=== PATIENT | female | born 1970 | race Caucasian/White ===

== ENCOUNTER → 2020-02-26 | Outpatient (REF) | payer OTHER, MEDICAID ==
[~2020-02-26] MED LIST: ANOR1AER PO; FURO20TA2 PO; PROAAER10 INH; SPIR-10 PO
[2020-02-26 13:35] LABS: BLOOD UREA NITROGEN 1 MG/DL (7-18); CALCIUM LEVEL 9.1 MG/DL (8.5-10.1); CARBON DIOXIDE LEVEL 29 MEQ/L (21-32); CHLORIDE LEVEL 97 MEQ/L (98-107); CREATININE FOR GFR 0.32 MG/DL (0.55-1.30); GLOMERULAR FILTRATION RATE > 60.0 (>51); GLUCOSE, FASTING 91 MG/DL (70-100); SODIUM LEVEL 132 MEQ/L (136-145)
== END ==
LOC: M PLALAB 11:25
PROVIDERS: ATTEND Surgery
DX: C50.911 Malignant neoplasm of unspecified site of right female breast (principal)

== ENCOUNTER → 2020-03-22 | Outpatient (CLI) | payer OTHER, MEDICAID ==
[~2020-03-22] MED LIST changes: +KP BTAB PO; +LISI-542 PO; +MULTCAP PO; +ONDA8TAB10 PO; +POTA1TAB14 PO; +PROC10TA4 PO; +PROHANCE 279.3MG/ML 5ML VIAL As Ordered ONE; +TREL1AER PO; +VITA50005 PO
--- NOTE | 2020-05-17 08:06 | REP ---
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 COMPARISON: Mammography and sonography 01/27/2020. Comparison sonography 03/30/2020. This report was delayed due to a malware attack on this facility. TECHNIQUE: High resolution pre- and postcontrast T1 and T2-weighted axial and coronal images and sagittal images are acquired. Dynamically acquired postcontrast images are acquired. Computer-aided detection device was used ([employer] system). Gadolinium enhancement dose is 8.6 mL of intravenous ProHance. MRI FINDINGS: The biopsy-proven malignancy is a large heterogeneously enhancing mass along the superior aspect of the right breast adjacent to the chest wall. This is apparently not projectable on mammography. The lesion measures 4.2 cm in greatest diameter x 3.0 cm x 4.1 cm. There is a convexity in the overlying skin and the lesion is not separable from the underlying pectoralis muscle. The pectoralis muscle appears intact. There is no definite pectoralis muscle invasion. There is no evidence of axillary lymphadenopathy. The lesion shows heterogeneous T2 hyperintensity, T1 hypointensity, and heterogeneously predominantly plateau and washout kinetic enhancements on dynamically acquired postcontrast images. There are large draining veins in the right breast. The right breast parenchymal shows extensive fibroglandular tissue bilaterally. There is a mild pattern of background parenchymal enhancement. No other suspicious focus of enhancement and washout is seen in either breast on dynamically acquired postcontrast images. There is a small nodule consistent with an intramammary lymph node in the 12 o'clock position of the posterior third of the right breast. This measures 7 mm in diameter and does not have suspicious features. No other suspicious morphologic abnormality is seen in either breast. IMPRESSION: BI-RADS category 6 known breast malignancy, large mass in the right superior breast, consistent with the biopsied lesion. No other suspicious abnormality is seen in either breast. [facility]
== END ==
LOC: M RAD 16:02
PROVIDERS: ATTEND Surgery
DX: C50.911 Malignant neoplasm of unspecified site of right female breast (principal)
CPT/HCPCS: A9576; C8908

== ENCOUNTER → 2020-03-30 | Outpatient (CLI) | payer OTHER ==
[~2020-03-30] MED LIST changes: -PROHANCE 279.3MG/ML 5ML VIAL As Ordered ONE
--- NOTE | 2020-05-20 19:28 | ROOPDOC ---
[facility] Report Of Operation Report of Operation This is a late entry note for the encounter from the date 03/30/20. Delay is due to major systemwide [facility] computer outage. Procedure Date 03/30/20 Dx: right breast cancer Procedure: Hydromark clip placement into right breast mass and punch biopsy of the right breast mass skin changes Findings: Hydromark clip seen in the mass on the sono examination, muscle seems to move independently from the mass, skin punch biopsy is taken at the area of nodularity over the mass Surgeon: Francois Narayan Lidocaine 1% LOT [id number] Expiration 01/2023 Sodium Bicarbonate 8.4% LOT [id number] Expiration 01/2021 Hydromark clip LOT [id number] Expiration 09/2022 SHAPE 4 4 mm punch biopsy device Informed consent was obtained. The most common risk and possible complications including bleeding, hematoma, bruising, infection, injury to surrounding structures were explained to the patient and she expressed understanding. Patient was placed on the bed in the supine position. Appropriate time out was done stating patients name, date of , and the procedure to be performed. The right breast was prepped and draped in the usual fashion. The ultrasound was used to document the size of the lesion in the lesion in the right breast at 1:00. Procedure was started with Hyrdomark placement into the mass as patient will be undergoing chemotherapy soon and the mass may be no longer palpable post chemotherapy. Plain Lidocaine 1% and 8.4% sodium bicarbonate 10:1 mix was used to anesthetize the skin at the side where the Hydromark will be placed and underlying tissues. Next the SHAPE 4 Hydromark clip introducer was placed into the middle of the mass and the clip deployed under sonographic guidance. Post-clip placement image was captured. Manual pressure over the biopsy cavity and tract was held after the clip intr oducer was withdrawn. No bleeding was noted upon removal of the pressure. Next, we proceeded with the second part of procedure which involved right breast mass skin punch biopsy. A skin area with nodularity at the medial and inferior aspect of the mass was chosen for the site of biopsy. Plain Lidocaine 1% and 8.4% sodium bicarbonate 10:1 mix was used to anesthetize the skin at the biopsy site. 4 mm punch biopsy device was used to collect the sample. Specimen was placed in formaldehyde, labeled with appropriate biopsy site and patients name, and sent to pathology for evaluation. The skin defect was closed with 4-0 chromic suture. Postprocedural dressing was placed. Patient tolerated procedure well. Discharge instructions were discussed with the patient and she expressed understanding. FRANCOIS NARAYAN DO May 20, 2020 19:27
== END ==
LOC: M IRPRO 11:35
PROVIDERS: ATTEND Surgery
DX: C50.911 Malignant neoplasm of unspecified site of right female breast (principal)

== ENCOUNTER → 2020-04-14 | Outpatient (CLI) | payer OTHER ==
[~2020-04-14] MED LIST changes: +LIDOCAINE 1% MDV 20ML VIAL As Ordered ONE; +MIDAZOLAM INJ 2MG/2ML VIAL (J2250 PER 1MG) As Ordered ONE; +ceFAZolin 2 GM/D5W 50 ML IV BAG (J0690 PER 500MG) As Ordered ONE; +diphenhydrAMINE 50MG/ML VIAL (J1200) As Ordered ONE; +fentaNYL 100 MCG/2 ML INJECTION (J3010) As Ordered ONE
[2020-04-14 14:15] LABS: INR 0.98; PROTHROMBIN TIME 13.2 SECONDS (11.8-14.0)
[2020-04-14 14:16] LABS: PARTIAL THROMBOPLASTIN TIME 32.8 SECONDS (25.0-38.4)
[2020-04-14 14:20] LABS: BASO % 0.5 % (0.0-1.0); EOS % 0.2 % (0.0-3.0); HEMATOCRIT 43.3 % (36.0-47.0); HEMOGLOBIN 14.7 g/dl (12.0-15.5); LYMPH # 1.6 10^3/uL (1.5-5.0); LYMPH % 19.2 % (24.0-44.0); MEAN CORPUSCULAR HEMOGLOBIN 37.2 pg (27.0-33.0); MEAN CORPUSCULAR HGB CONC 33.9 g/dl (32.0-36.5); MEAN CORPUSCULAR VOLUME 109.6 fl (80.0-96.0); MONO # 0.7 10^3/uL (0.0-0.8); NEUTROPHILS # 5.8 10^3/uL (1.5-8.5); NEUTROPHILS % 71.7 % (36.0-66.0); PLATELET COUNT, AUTOMATED 256 10^3/uL (150-450); RED BLOOD COUNT 3.95 10^6/uL (4.00-5.40); WHITE BLOOD COUNT 8.1 10^3/uL (4.0-10.0)
[2020-04-14 15:45] VITALS: BP 125/58
--- NOTE | 2020-04-30 11:45 | POST-OPPD ---
Postoperative Procedure Note Date Of Procedure: Apr 14, 2020 Time Of Procedure: 16:00 IR Ultrasound and fluoroscopy-guided port placement. IR Ultrasound of the neck. IR Moderate sedation. Clinical information: Right sided breast cancer. Physician: Dr. Burr. Procedure: The patient was advised of the benefits, risks, and alternatives of the procedure and informed consent was obtained. A time-out was performed with verification of the patient's name, MRN, site of procedure and type of procedure to be performed. The patient was positioned in the supine position on the angiographic table. The site was prepped and draped in the usual sterile fashion. Moderate sedation was performed by the physician including the presence of an independent trained observer who assisted and monitored the patient's level of consciousness and physiologic status. Following the administration of fentanyl and Versed , the physician spent 45 minutes of continuous face to face time with the patient. Ultrasound of the neck reveals a patent and compressible left internal jugular vein. A parts processor radiograph reveals no gross abnormality. The neck and anterior chest wall were anesthetized with lidocaine. The left internal jugular vein was accessed using a microintroducer needle under ultrasound guidance, via a lateral approach. An 018 wire was advanced into the superior vena cava, the needle was removed and a microsheath was placed. An Amplatz wire was then passed into the inferior vena cava. An incision at the internal jugular vein access site and anterior chest wall were made using a scalpel. An incision was made at the anterior chest wall. A small pocket was created using a combination of blunt and sharp dissection. A tunneling device was then used to pass the catheter from the pocket to the neck puncture site. An 8-Frenc h Angio dynamics Smart power port was then positioned in the pocket. The catheter was then measured and cut. The introducer sheath was exchanged for a peel-away sheath. The catheter was passed through the peel-away sheath into the internal jugular vein and the peel-away sheath was removed. The port tip was positioned at the cavoatrial junction. The port was then accessed with a Yadav needle. The port flushes and aspirates well. The puncture site in the neck was closed. The chest wall incision was then closed with 2-0 Vicryl and 4-0 Monocryl. Glue and Steri- Strips were applied. A sterile dressing was then applied. The patient tolerated the procedure well and was returned to the PRU in stable condition. Estimated blood loss: <5 ml. Complications: None. Conclusion: 1. Successful placement of an 8-[place] Angio dynamics Smart power port via the Left internal jugular vein. The port is ready for immediate use. 2. Patient to follow up in IR clinic in 2 weeks. Thank you for this referral. MELISA BURR MD Apr 30, 2020 11:45
== END ==
LOC: M IRPRO 12:25
PROVIDERS: ATTEND Specialist
DX: C50.911 Malignant neoplasm of unspecified site of right female breast (principal)
CPT/HCPCS: 36561; 85025; 85610; 85730; 99152; 99153; C1769; C1788; C1894; J0690; J1200; J1642; J1644; J2250; J3010